=== PATIENT | female | born 1970 | race Caucasian/White ===

== ENCOUNTER 2018-05-07 07:00 | Inpatient (IN) ==
--- NOTE | 2018-05-05 09:51 | HISTORY AND PHYSICAL ---
HISTORY OF PRESENT ILLNESS: The patient is a 48-year-old, white female, G2, P2, who has had on and off irregular menses. Most recently, had some concerns because of heavy bleeding over a 3- month stretch. At that point in time, her hemoglobin had dropped to 8.4, an endometrial biopsy was performed, and this showed mild endometrial hyperplasia. The patient was referred then referred to [facility] in [place] and given recommendations, and she opted to return here for care for hysterectomy. Patient is scheduled for surgery on 05/07/2018, and a MARGARITA BSO is scheduled. The patient counseled about the risks of surgery including bleeding, infection, bowel or bladder injury. PAST MEDICAL HISTORY: Significant for hypertension. The patient has also had some TIAs, but these have not been present for the last 2 years, as her blood pressure has been under control, and she had been taking a baby aspirin daily but has not taken 1 in the last 2 months. PAST SURGICAL HISTORY: Significant for left ankle surgery and a history of bilateral tubal ligation. PAST OBSTETRICAL HISTORY: G2, P2. Spontaneous vaginal delivery x2. GYNECOLOGICAL HISTORY: Menarche at age 13 and then most recently, since she was in her early 40s, she has had the irregular bleeding, but most recently in the past several months, her bleeding has become significantly worse. FAMILY HISTORY: Significant for myocardial infarction, strokes, and colon cancer. SOCIAL HISTORY: Tobacco use none. Alcohol use none. MEDICATIONS: Losartan 50 mg daily, hydrochlorothiazide 12.5 mg daily, iron pill daily. ALLERGIES: No known drug allergies. PHYSICAL EXAMINATION: VITAL SIGNS: Temperature 97.1 degrees, pulse of 77, blood pressure 170/81, respirations 20. WEIGHT: 220 pounds. HEENT: Pupils equal, round, and reactive to light and accommodation. Extraocular movements intact. Oropharynx clear. NECK: Supple with no thyromegaly. LUNGS: Clear to auscultation. HEART: Regular rate and rhythm. ABDOMEN: Bowel sounds positive. Soft, nontender. No masses palpated. EXTREMITIES: No clubbing, cyanosis, or edema noted. NEUROLOGIC: Cranial nerves 2 through 12 grossly intact. Motor 5/5. ASSESSMENT AND PLAN: A 48-year-old white female, 2, para 2, with mild endometrial hyperplasia, scheduled for total abdominal hysterectomy/bilateral salpingo-oophorectomy (MARGARITA/BSO). Patient counseled about the risks of surgery, including bleeding, infection, bowel or bladder injury. cc: Dannie Vazquez III, MD
[2018-05-05 11:07] LABS: URINE SOURCE VOIDED
[2018-05-05 11:16] LABS: BILIRUBIN URINE NEGATIVE (NEGATIVE); BLOOD URINE NEGATIVE (NEGATIVE); COLOR YELLOW; GLUCOSE URINE NEGATIVE (NEGATIVE); KETONE URINE NEGATIVE (NEGATIVE); LEUKOCYTES URINE TRACE (NEGATIVE); NITRITE URINE NEGATIVE (NEGATIVE); PH URINE 6.5; PROTEIN URINE NEGATIVE (NEGATIVE); TURBIDITY URINE CLEAR (CLEAR); UROBILINOGEN URINE NORMAL (NORMAL)
[2018-05-05 11:17] LABS: UR EPITHELIAL CELLS <10 /HPF (<10); URINE BACTERIA NEGATIVE /HPF; URINE RBC <10 /HPF (<10); URINE WBC <10 /HPF (<10)
[2018-05-05 11:31] LABS: BASO# 0.13 X1000 (0.0-0.2); BASO% 2.5 % (0.0-0.8); EOS# 0.22 X1000 (0.0-0.7); EOS% 4.2 % (0.0-10.0); HEMATOCRIT 39.1 % (37.0-47.0); IMM GRAN# 0.02 X1000 (0.0-0.04); IMM GRAN% 0.4 % (0.0-0.5); LYMPH# 1.28 X1000 (1.2-3.4); LYMPH% 24.6 % (20.5-51.1); MCH 26.7 PG (27-31); MCHC 30.7 g/dL (33-37); MCV 87.1 FL (81-99); MONO# 0.53 X1000 (0.11-0.59); MONO% 10.2 % (1.7-9.3); NEUT# 3.03 X1000 (1.4-6.5); NEUT% 58.1 % (42.2-75.2); PLT 277 X1000 (130-400); RBC 4.49 XMIL (4.2-5.4); RDW 14.4 % (11.5-14.5); WBC 5.21 X1000 (4.8-10.8)
--- NOTE | 2018-05-05 11:39 | EKG Report ---
Test Performed on : 05/05/2018 10:09:53 AM Test Reason : PAT Blood Pressure : / mmHG Vent. Rate : 076 BPM Atrial Rate : 076 BPM P-R Int : 158 ms QRS Dur : 086 ms QT Int : 394 ms P-R-T Axes : 059 041 058 degrees QTc Int : 443 ms Normal sinus rhythm. with sinus arrhythmia. Cannot rule out Anterior infarct (cited on or before 27-JUN-2017) Abnormal ECG When compared with ECG of 27-JUN-2017 13:06, No significant change was found Confirmed by Cristi HEMPHILL, Jarad Valle ([id number]) on 05/05/2018 3:29:38 PM
[2018-05-22 14:26] LABS: URINE SOURCE VOIDED
[2018-05-22 14:30] LABS: BASO# 0.11 X1000 (0.0-0.2); BASO% 1.7 % (0.0-0.8); EOS# 0.18 X1000 (0.0-0.7); EOS% 2.7 % (0.0-10.0); HEMATOCRIT 40.2 % (37.0-47.0); HEMOGLOBIN 12.5 g/dL (12.0-16.0); IMM GRAN# 0.02 X1000 (0.0-0.04); IMM GRAN% 0.3 % (0.0-0.5); LYMPH# 1.67 X1000 (1.2-3.4); LYMPH% 25.1 % (20.5-51.1); MCH 27.2 PG (27-31); MCHC 31.1 g/dL (33-37); MCV 87.4 FL (81-99); MONO# 0.64 X1000 (0.11-0.59); MONO% 9.6 % (1.7-9.3); MPV 11.3 FL (7.4-10.4); NEUT# 4.03 X1000 (1.4-6.5); NEUT% 60.6 % (42.2-75.2); PLT 320 X1000 (130-400); RDW 14.9 % (11.5-14.5); WBC 6.65 X1000 (4.8-10.8)
--- NOTE | 2018-05-22 15:08 | HISTORY AND PHYSICAL ---
UPDATED PREOPERATIVE HISTORY AND PHYSICAL: DATE OF SURGERY: Surgery is scheduled for 05/28/2018. CHIEF COMPLAINT: Irregular menses. HISTORY OF PRESENT ILLNESS: The patient is a 48-year-old white female, G2, P2, who has had an on and off irregular menses history. Most recently, had heavy bleeding over the past 3 months and at that time her hemoglobin dropped to 8.4. An endometrial biopsy was performed which showed mild endometrial hyperplasia. The patient had initially been referred to [facility] in [place]. The patient was at that point in time given recommendations and she opted to return here for care for hysterectomy. The patient counseled about the risks of surgery, including bleeding, infection, bowel or bladder injury. PAST MEDICAL HISTORY: Significant for hypertension. The patient has had some TIAs in the past, though it has been at least 3 or 4 years since her last one and as her blood pressure has been under control. She has not taken any baby aspirin in the last 2 months. PAST SURGICAL HISTORY: Significant for left ankle surgery. Also, a history of bilateral tubal ligation. PAST OBSTETRICAL HISTORY: G2, P2. Spontaneous vaginal delivery x 2. GYNECOLOGIC HISTORY: Menarche at age 13. The patient had menopause or what she thought was menopause in her early 40s, but then she had irregular bleeding, particularly recently in the past 3 months, which has been noticeably worse. FAMILY HISTORY: Significant for myocardial infarction, strokes and colon cancer. SOCIAL HISTORY: Tobacco use none. Alcohol use none. MEDICATIONS: Losartan 50 mg daily, hydrochlorothiazide 12.5 mg daily and an iron pill daily. ALLERGIES: No known drug allergies. PHYSICAL EXAMINATION: VITAL SIGNS: Temp 97.6. Weight 215 pounds. Pulse of 77, blood pressure 152/78, respirations 20. HEENT: Pupils equal, round, reactive to light and accommodation. Extraocular movements intact. Oropharynx clear. NECK: Supple. No thyromegaly. LUNGS: Clear to auscultation. HEART: Regular rate and rhythm. ABDOMEN: Bowel sounds positive. Soft, nontender. No masses were palpated. EXTREMITIES: No clubbing, cyanosis or edema noted. NEUROLOGIC: Cranial nerves 2-12 grossly intact. Motor 5/5. ASSESSMENT AND PLAN: A 48-year-old, white female, G2, P2, with mild endometrial hyperplasia. The patient is scheduled for a total abdominal hysterectomy with bilateral salpingo-oophorectomy. Patient counseled about the risks of surgery, including bleeding, infection, bowel or bladder injury. cc: Dannie Vazquez III, MD
[2018-05-22 17:16] LABS: BILIRUBIN URINE NEGATIVE (NEGATIVE); BLOOD URINE TRACE (NEGATIVE); COLOR ORANGE; GLUCOSE URINE NEGATIVE (NEGATIVE); KETONE URINE NEGATIVE (NEGATIVE); LEUKOCYTES URINE NEGATIVE (NEGATIVE); NITRITE URINE NEGATIVE (NEGATIVE); PH URINE 5.5; PROTEIN URINE NEGATIVE (NEGATIVE); TURBIDITY URINE TURBID (CLEAR); UR EPITHELIAL CELLS <10 /HPF (<10); URINE BACTERIA NEGATIVE /HPF; URINE RBC <10 /HPF (<10); URINE WBC <10 /HPF (<10); UROBILINOGEN URINE NORMAL (NORMAL)
[2018-05-28] MEDS ORDERED: PEPCID ONE (05:37)
[2018-05-28] MEDS ORDERED: LR 1,000 ML ONE ×2 (05:37→09:05)
[2018-05-28] MEDS ORDERED: REGLAN ONE (05:37)
[2018-05-28] MEDS ORDERED: KEFZOL 2 GM/D5W 2 GM/50 ML IVPB ONE (05:37)
[2018-05-28] MEDS ORDERED: XYLOCAINE-MPF 2% ONE (06:12)
[2018-05-28] MEDS ORDERED: DIPRIVAN 1% ONE (06:12)
[2018-05-28] MEDS ORDERED: VERSED ONE (06:12)
[2018-05-28] MEDS ORDERED: SODIUM CHLORIDE 0.9% 10 ML ONE (06:13)
[2018-05-28] MEDS ORDERED: FENTANYL ONE (06:13)
[2018-05-28] MEDS ORDERED: QUELICIN (DOSE) ONE (06:13)
[2018-05-28] MEDS ORDERED: NORCURON ONE (06:13)
[2018-05-28] MEDS ORDERED: ROBINUL ONE (07:16)
[2018-05-28] MEDS ORDERED: NEOSTIGMINE ONE (07:16)
--- NOTE | 2018-05-28 07:26 | EKG Report ---
Test Performed on : 05/28/2018 05:38:12 AM Test Reason : PREOP Blood Pressure : / mmHG Vent. Rate : 086 BPM Atrial Rate : 086 BPM P-R Int : 154 ms QRS Dur : 082 ms QT Int : 372 ms P-R-T Axes : 034 -04 050 degrees QTc Int : 445 ms Normal sinus rhythm. with sinus arrhythmia. Cannot rule out Inferior infarct , age undetermined Cannot rule out Anterior infarct (cited on or before 27-JUN-2017) Abnormal ECG When compared with ECG of 05-MAY-2018 10:09, Minimal criteria for Inferior infarct are now present Unconfirmed Result
[2018-05-28 07:47] LABS: URINE SOURCE CATH
[2018-05-28 08:01] LABS: BILIRUBIN URINE NEGATIVE (NEGATIVE); BLOOD URINE NEGATIVE (NEGATIVE); COLOR STRAW; GLUCOSE URINE NEGATIVE (NEGATIVE); KETONE URINE NEGATIVE (NEGATIVE); LEUKOCYTES URINE NEGATIVE (NEGATIVE); NITRITE URINE NEGATIVE (NEGATIVE); PH URINE 6.5; PROTEIN URINE NEGATIVE (NEGATIVE); SP GRAVITY URINE 1.006; TURBIDITY URINE CLEAR (CLEAR); UR EPITHELIAL CELLS <10 /HPF (<10); URINE BACTERIA NEGATIVE /HPF; URINE RBC <10 /HPF (<10); URINE WBC <10 /HPF (<10); UROBILINOGEN URINE NORMAL (NORMAL)
[2018-05-28] MEDS ORDERED: MORPHINE IM PRN (08:47)
[2018-05-28] MEDS ORDERED: ZOFRAN IV PRN ×2 (08:47→09:30)
[2018-05-28] MEDS ORDERED: SODIUM CHLORIDE 0.9% INJ PRN ×2 (08:47→09:30)
[2018-05-28] MEDS ORDERED: AMBIEN PO PRN ×2 (08:47→10:33)
[2018-05-28] MEDS ORDERED: PHENERGAN IV PRN ×2 (08:47→09:30)
[2018-05-28] MEDS ORDERED: NORCO-10 PO PRN (08:47)
[2018-05-28] MEDS ORDERED: NORCO-5 PO PRN (08:47)
[2018-05-28] MEDS: DILAUDID ONE ×4 (08:48→09:35)
[2018-05-28] MEDS ORDERED: COLACE PO SCH (09:00)
[2018-05-28] MEDS ORDERED: MYLICON PO SCH (09:00)
[2018-05-28] MEDS ORDERED: OFIRMEV 1000 MG/ISOTONIC SOLN 1,000 MG/100 ML BOTTLE IV SCH (09:00)
[2018-05-28] MEDS ORDERED: PERIDEX MT SCH (09:00)
--- NOTE | 2018-05-28 09:13 | OPERATIVE NOTE ---
PROCEDURE DATE: 05/28/2018 PREOPERATIVE DIAGNOSIS: Mild endometrial hyperplasia. POSTOPERATIVE DIAGNOSIS: Mild endometrial hyperplasia. PROCEDURE: Total abdominal hysterectomy. Bilateral salpingo-oophorectomy. SURGEON: Dannie Vazquez III, MD. ASSIST: Delbert Driver MD. ANESTHESIA: General. Dannie Block MD. FINDINGS: Normal-appearing uterus, tubes, and ovaries. COMPLICATIONS: None. ESTIMATED BLOOD LOSS: 50 mL. SPECIMENS REMOVED: Uterus, cervix and bilateral tubes and ovaries. DRAINS: Smith to straight drain. COUNTS: All counts were correct x3. INDICATIONS: Patient is a 48-year-old, white female, with a diagnosis of endometrial hyperplasia by endometrial biopsy. The patient had been referred to the [facility] oncologist, but after giving options, had decided to have hysterectomy here at [place]. Patient counseled about the risks of surgery, including bleeding, infection, bowel or bladder injury. DESCRIPTION OF OPERATION: The patient was taken to the OR, placed in supine position. General anesthesia was employed. The patient was then prepped and draped in a sterile fashion with placement of Smith catheter. A Pfannenstiel skin incision was made using a scalpel. This was then taken down sharply to the fascia layer. Small deann was made in the rectus fascia. Fascial incision was extended bilaterally by curved Lugo scissors. Then blunt and sharp dissection of the rectus fascia was performed superiorly and inferiorly. Rectus muscles were then divided in the midline. Peritoneal layer was entered bluntly and then the peritoneal incision was extended superiorly and inferiorly with care taken to avoid the bladder. At this point in time, O'Gary- O'King retractor was placed into the abdominal cavity and retractor blades were placed for the bladder and also for upper abdomen with 3 moistened lap sponges placed to help retract bowel. Uterus was identified and initially grasped with a Yloanda clamp. The round ligaments were identified on the left side. Two Cheyenne clamps placed and then electrocautery was used to cut through the round ligament and then a transfixing stitch of 0 Vicryl was used and good hemostasis was noted. The right round ligament was also identified. Two Cheyenne clamps placed across it and then electrocautery was used to dissect the round ligament and then good hemostasis was noted. Then a 0 Vicryl transfixing stitch was placed on the round ligament and good hemostasis was noted. The bladder reflection was then created using Metzenbaum scissors. Then Cheyenne's free space was entered bluntly and then a Ivett clamp was placed across the utero-ovarian ligament. Then this was cut and then ligation with a transfixing stitch of 0 Vicryl was performed on both sides. Then skeletonization of the uterine artery was performed near the uterus, and then a curved Carli clamp was clamped across the uterine vessels bilaterally. This was then cut and then ligated using a transfixing stitch of 0 Vicryl on both sides and good hemostasis was noted. We continued to work on pushing the bladder reflection down to the cervix and good tissue was noted with dissection. Then going down the side of the uterus with straight clamps, able to dissect all the way to the edge of the cervix, and this was done with a transfixing stitch of 0 Vicryl. Good hemostasis was noted. Then a curved Carli clamp was placed around the uterus on both sides and then this was ligated with a transfixing stitch. Good hemostasis was noted. Then the vaginal cuff was closed using [id number] stitches x3 and good hemostasis was noted. The vaginal cuff was inspected along with the sidewall, and good hemostasis was noted there. At this point in time, a clamp was used to elevate the right ovary and tube and then a Ivett clamp was placed across this, then this was dissected with Lugo scissors and handed off to be placed in a specimen container. The transfixing stitch of 0 Vicryl was used to ligate the infundibulopelvic ligament and then a single tie on a pass of 0 Vicryl was used to back up that stitch and the good hemostasis was noted. This was performed on both sides and the left ovary was removed without incident and good hemostasis was noted, initially with a transfixing stitch of 0 Vicryl and then with a tie on a pass of 0 Vicryl. Upon dissection of the uterus, once we got down close to the cervix, the uterus was amputated and then the rest of the cervix was then removed as described above. Irrigation was then employed and good hemostasis was noted. Then the peritoneal layer was then closed using 2-0 chromic in a running fashion x1. The fascial incision was then closed using 0 Maxon in a running fashion x1 and subcutaneous layer was irrigated and then electrocautery was used to obtain hemostasis. The skin was then reapproximated using brandi. Patient tolerated the procedure well and was taken to recovery room in stable condition. All counts were correct x3. Urine output was noted to be clear. The patient had received 2 g of Ancef at the time of surgery. cc: Dannie Vazquez III, MD
[2018-05-28] MEDS ORDERED: LR 1,000 ML IV SCH (09:30)
[2018-05-28] MEDS ORDERED: BENADRYL IV PRN (09:30)
[2018-05-28] MEDS ORDERED: DILAUDID-HP 30 MG in NS 27 ML IV PRN (09:30)
[2018-05-28] MEDS ORDERED: NARCAN IV PRN (09:30)
[2018-05-28] MEDS ORDERED: HYDROCHLOROTHIAZIDE PO SCH (10:26)
[2018-05-28] MEDS: LR 1,000 ML IV SCH ×3 (10:30→20:41)
[2018-05-28] MEDS: PHENERGAN IV PRN (11:17)
[2018-05-28] MEDS: OFIRMEV 1000 MG/ISOTONIC SOLN 1,000 MG/100 ML BOTTLE IV SCH ×2 (12:41→18:43)
[2018-05-28] MEDS: HYDROCHLOROTHIAZIDE PO SCH (12:41)
[2018-05-28] MEDS: COZAAR PO SCH (12:41)
[2018-05-28] MEDS: PERIDEX MT SCH (20:41)
[2018-05-29] MEDS: LR 1,000 ML IV SCH ×2 (00:40→13:08)
[2018-05-29] MEDS: OFIRMEV 1000 MG/ISOTONIC SOLN 1,000 MG/100 ML BOTTLE IV SCH ×2 (00:40→05:47)
[2018-05-29 06:55] LABS: BASO# 0.04 X1000 (0.0-0.2); BASO% 0.7 % (0.0-0.8); EOS# 0.03 X1000 (0.0-0.7); EOS% 0.5 % (0.0-10.0); HEMATOCRIT 35.8 % (37.0-47.0); HEMOGLOBIN 11.2 g/dL (12.0-16.0); LYMPH# 0.33 X1000 (1.2-3.4); LYMPH% 5.9 % (20.5-51.1); MCH 27.2 PG (27-31); MCHC 31.3 g/dL (33-37); MCV 86.9 FL (81-99); MONO# 0.41 X1000 (0.11-0.59); MONO% 7.4 % (1.7-9.3); MPV 11.4 FL (7.4-10.4); NEUT# 4.75 X1000 (1.4-6.5); NEUT% 85.5 % (42.2-75.2); PLT 216 X1000 (130-400); RBC 4.12 XMIL (4.2-5.4); RDW 15.1 % (11.5-14.5); WBC 5.56 X1000 (4.8-10.8)
[2018-05-29] MEDS ORDERED: D/C PCA XX ONE (08:34)
[2018-05-29] MEDS: HYDROCHLOROTHIAZIDE PO SCH (08:48)
[2018-05-29] MEDS: PERIDEX MT SCH ×2 (08:49→22:48)
[2018-05-29] MEDS: COZAAR PO SCH (08:49)
[2018-05-29] MEDS: NORCO-5 PO PRN ×2 (10:20→11:16)
[2018-05-29] MEDS: PHENERGAN IV PRN ×3 (13:23→22:47)
[2018-05-29] MEDS: NORCO-10 PO PRN ×3 (15:24→22:48)
[2018-05-29] MEDS: SODIUM CHLORIDE 0.9% INJ PRN (22:49)
[2018-05-30] MEDS: LR 1,000 ML IV SCH ×2 (00:57→08:23)
[2018-05-30] MEDS: PHENERGAN IV PRN ×3 (03:53→12:56)
[2018-05-30] MEDS: SODIUM CHLORIDE 0.9% INJ PRN (03:54)
[2018-05-30] MEDS: NORCO-10 PO PRN ×3 (03:54→12:56)
[2018-05-30] MEDS: COZAAR PO SCH (08:23)
[2018-05-30] MEDS: HYDROCHLOROTHIAZIDE PO SCH (08:23)
[2018-05-30] MEDS: PERIDEX MT SCH (08:23)
[2018-05-30 11:08] VITALS: BP 118/59
--- NOTE | 2018-05-30 15:21 | DISCHARGE SUMMARY ---
ADMISSION DATE: 05/28/2018 DISCHARGE DATE: 05/30/2018 ADMISSION DIAGNOSIS: Mild endometrial hyperplasia. FINAL DIAGNOSIS: Mild endometrial hyperplasia. PROCEDURE: Total abdominal hysterectomy, bilateral salpingo-oophorectomy. BRIEF HISTORY: Patient is a 48-year-old, white female. G 2, G2, P2, who was noted to have some irregular bleeding. This was evaluated with endometrial biopsy and showed mild hyperplasia. Patient was sent to [facility] but she to return here for hysterectomy due to closeness to her home. PAST MEDICAL HISTORY: Significant for hypertension. She has also had some TIAs in the past. That has been at least 2 years since she has had 1. She had been taking baby aspirin but has not had any baby aspirin since February. PAST SURGICAL HISTORY: Significant for left ankle surgery and a history of tubal ligation. PAST OB HISTORY: G2, P2. Spontaneous vaginal delivery x2. 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 She has had some irregular bleeding recently and in the past several months has been increasingly worse. FAMILY HISTORY: Significant for myocardial infarction, strokes, colon cancer. SOCIAL HISTORY: Tobacco use none. Alcohol use none. MEDICATIONS: Losartan 50 mg daily. Hydrochlorothiazide 12.5 mg daily as well as an iron pill daily. ALLERGIES: No known drug allergies. PHYSICAL EXAM: General: Temp 97.1 degrees, pulse 77, blood pressure 170/81, respirations 20. Weight 220 pounds. HEENT: Pupils equal, round, reactive to light and accommodation. Extraocular movements intact. Oropharynx clear. Neck: Supple. No thyromegaly. Lungs: Clear to auscultation. Heart: Regular rate and rhythm. Abdomen: Bowel sounds positive. Soft, nontender, no masses palpated. Extremities: No clubbing, cyanosis, or edema noted. Neurologic: Cranial nerves 2-12 grossly intact. Motor 5/5. ASSESSMENT AND PLAN: 48-year-old white female, G2, P2 with mild endometrial hyperplasia obtained on endometrial biopsy. Patient scheduled for total abdominal hysterectomy, bilateral salpingo- oophorectomy. Patient counseled about risks of surgery including bleeding, infection, bowel or bladder injury. HOSPITAL COURSE: The patient had surgery on 05/28/2018 and MARGARITA BSO was performed without incident. Patient's postoperative course, she did well had temp of 101 degrees on postop day 1, that defervesced and never returned. She was advanced on her diet slowly and removed from IV and Smith was discontinued as well. The patient then on postop day 2, had positive flatus and was eager to go home. Pathology results showed that she had simple hyperplasia as well as adenomyosis but no other significant findings. Normal tubes and ovaries and normal cervix. The patient will be discharged home at this time. DISCHARGE PLANS: The patient will be discharged home to follow up on 06/04/2018 for staple removal. The patient was given prescriptions for [place] 10 dispense 20 with no refills. Phenergan 25 mg tablets dispense 20 with 1 refill and Colace 100 mg dispense 30 with 1 refill. The patient is instructed to call for a temperature greater than 101, heavy vaginal bleeding, or severe abdominal pain. The patient also instructed on no heavy lifting for 6 weeks and instructed on pelvic rest for the next 6 weeks as well. cc: Dannie Vazquez III, MD
== END 2018-05-30 13:36 | disposition home or self-care (01) | DRG 743 ==
LOC: SURHOLD 05-28 05:13 → 4N 05-28 08:53
PROVIDERS: ADMIT Obstetrics & Gynecology; ATTEND Obstetrics & Gynecology
CPT/HCPCS: 81001; 84702; 84703; 85025; 86850; 86900; 86901; 88307; 93005; 93010; 94761; 94799; A9270; J0131; J0330; J0690; J1170; J2250; J2550; J3010; J7120